=== PATIENT | male | born 1995 | race Caucasian/White ===

== ENCOUNTER → 2020-01-12 | Outpatient (CLI) | payer OTHER | LOC: COL.CARD 13:00 | DX: R56.9 Unspecified convulsions (principal) ==

== ENCOUNTER 2020-03-22 13:07 | Outpatient (CLI) | payer OTHER ==
[~2020-03-22] VITALS: Ht 180.3 cm; Wt 77.1 kg
[2020-03-22] VITALS (7 sets, daily range): BP systolic 102–118; BP diastolic 62–72; PULSE 58–70; TEMP 98.7
[2020-03-22] MEDS ORDERED: NEURONTIN100 MG/CAP PO (13:45)
--- NOTE | 2020-03-22 16:30 | NUR ---
Back from [place] by [facility]. Alert and oriented, denies dizziness at this time. VSS
--- NOTE | 2020-03-22 17:54 | NUR ---
Discharge instructions given. INT discontinued intact. Ambulated with pt to private car
== END 2020-03-22 17:56 | disposition home or self-care (01) ==
LOC: COL.CAR 13:07
DX: R42 Dizziness and giddiness (principal); G43.909 Migraine, unspecified, not intractable, without status migrainosus; Z20.828 Contact with and (suspected) exposure to other viral communicable diseases